=== PATIENT | male | born 1975 | race Caucasian/White ===

== ENCOUNTER 2020-09-06 09:58 | Outpatient (CLI) | payer MEDICAID, SELFPAY ==
[2020-09-06 13:18] LABS: Abs Immature Grans 0.06 10^3/uL (0.0-0.06); Absolute Basophil Count 0.05 10^3/uL (0.0-0.2); Absolute Eosinophil Count 0.21 10^3/uL (0.0-0.7); Absolute Lymphocyte Count 2.32 10^3/uL (1.2-3.4); Absolute Monocyte Count 0.63 10^3/uL (0.1-0.8); Absolute Neutrophil Count 4.73 10^3/uL (1.2-6.7); Basophils % 0.6; Eosinophils % 2.6; HCT 41.1 % (40.0-50.0); HGB 14.2 g/dL (13.5-17.5); Immature Grans % 0.8; MCH 31.7 pg (27.0-33.0); MCHC 34.5 % (32.0-36.0); MCV 91.7 fL (80-95); MPV 8.6 fL (8.0-11.0); Monocytes % 7.9; Neutrophils % 59.1; Nucleated RBC 0 %; Platelet Count 306 10^3/uL (130-400); RBC 4.48 10^6/uL (4.36-5.78); RDW 13.2 % (11.8-14.1); RDW-SD 44.9 fL
[2020-09-06 13:58] LABS: Folate > 20.0 ng/mL (8.6-20.0); Vitamin B12 692 pg/mL (193-986)
== END 2020-09-06 09:59 | disposition home or self-care (01) ==
PROVIDERS: Visit Provider Internal Medicine
DX: C71.9 Malignant neoplasm of brain, unspecified (principal)
CPT/HCPCS: 82607; 82746; 85025

== ENCOUNTER 2020-09-13 03:27 | Outpatient (CLI) | payer MEDICAID, SELFPAY ==
[2020-09-13 09:38] LABS: Abs Immature Grans 0.14 10^3/uL (0.0-0.06); Absolute Basophil Count 0.03 10^3/uL (0.0-0.2); Absolute Eosinophil Count 0.01 10^3/uL (0.0-0.7); Absolute Lymphocyte Count 1.05 10^3/uL (1.2-3.4); Basophils % 0.3; Eosinophils % 0.1; HCT 40.6 % (40.0-50.0); HGB 14.1 g/dL (13.5-17.5); Immature Grans % 1.2; Lymphocytes % 9.1; MCH 31.4 pg (27.0-33.0); MCHC 34.7 % (32.0-36.0); MCV 90.4 fL (80-95); MPV 9.1 fL (8.0-11.0); Neutrophils % 84.3; Nucleated RBC 0 %; Platelet Count 262 10^3/uL (130-400); RBC 4.49 10^6/uL (4.36-5.78); RDW 12.8 % (11.8-14.1); RDW-SD 42.8 fL; WBC 11.51 10^3/uL (4.4-10.8)
[2020-09-13 09:39] LABS: Absolute Monocyte Count 0.58 10^3/uL (0.1-0.8)
[2020-09-13 10:14] LABS: ALT 33 U/L (16-63); AST 24 U/L (15-37); Alkaline Phosphatase 130 U/L (46-116); Anion Gap 11.3 mmol/L (3-11); BUN 13 mg/dL (7-18); Bilirubin, Total 0.4 mg/dL (0.2-1.0); CO2 25.7 mmol/L (21.0-32.0); Calcium 9.4 mg/dL (8.5-10.1); Chloride 101 mmol/L (98-107); Glucose 117 mg/dL (74-106); Potassium 4.3 mmol/L (3.5-5.1); Sodium 138 mmol/L (136-145); Total Protein 8.3 g/dL (6.4-8.2); Vitamin B12 672 pg/mL (193-986)
[2020-09-13 10:22] LABS: Folate > 20.0 ng/mL (8.6-20.0)
[2020-09-13 10:34] LABS: Iron 115 ug/dL (65-175)
== END 2020-09-13 03:28 | disposition home or self-care (01) ==
LOC: LBO 03:27
PROVIDERS: Visit Provider Internal Medicine
DX: C71.9 Malignant neoplasm of brain, unspecified (principal)
CPT/HCPCS: 36415; 80053; 82607; 82746; 83540; 85025

== ENCOUNTER 2020-09-20 02:46 | Outpatient (CLI) | payer MEDICAID, SELFPAY ==
[2020-09-20 10:43] LABS: HCT 41.6 % (40.0-50.0); HGB 13.7 g/dL (13.5-17.5); MCH 31.2 pg (27.0-33.0); MCHC 32.9 % (32.0-36.0); MCV 94.8 fL (80-95); Platelet Count 279 10^3/uL (130-400); RBC 4.39 10^6/uL (4.36-5.78); RDW 13.4 % (11.8-14.1); RDW-SD 46.8 fL; WBC 20.45 10^3/uL (4.4-10.8)
[2020-09-20 11:23] LABS: ALT 95 U/L (16-63); AST 52 U/L (15-37); Albumin 3.7 g/dL (3.4-5.0); Alkaline Phosphatase 101 U/L (46-116); Anion Gap 7.2 mmol/L (3-11); BUN 16 mg/dL (7-18); Bilirubin, Total 0.4 mg/dL (0.2-1.0); CO2 28.8 mmol/L (21.0-32.0); CREATININE 0.8 mg/dL (0.70-1.30); Calcium 8.9 mg/dL (8.5-10.1); Chloride 102 mmol/L (98-107); Folate > 20.0 ng/mL (8.6-20.0); Glucose 109 mg/dL (74-106); Potassium 4.1 mmol/L (3.5-5.1); Sodium 138 mmol/L (136-145); Total Protein 7.3 g/dL (6.4-8.2); Vitamin B12 492 pg/mL (193-986)
[2020-09-20 11:28] LABS: Iron 126 ug/dL (65-175)
== END 2020-09-20 02:47 | disposition home or self-care (01) ==
LOC: LBO 02:46
PROVIDERS: Visit Provider Internal Medicine
DX: C71.9 Malignant neoplasm of brain, unspecified (principal)
CPT/HCPCS: 36415; 80053; 85027; 82607; 82746; 83540

== ENCOUNTER 2020-09-27 01:56 | Outpatient (CLI) | payer MEDICAID, SELFPAY ==
[2020-09-27 09:49] LABS: HCT 43.7 % (40.0-50.0); HGB 14.6 g/dL (13.5-17.5); MCH 32.1 pg (27.0-33.0); MCHC 33.4 % (32.0-36.0); MPV 8.7 fL (8.0-11.0); Nucleated RBC 0 %; Platelet Count 299 10^3/uL (130-400); RBC 4.55 10^6/uL (4.36-5.78); RDW 13.6 % (11.8-14.1); RDW-SD 48.5 fL; WBC 23.61 10^3/uL (4.4-10.8)
[2020-09-27 10:09] LABS: Absolute Eosinophil Count 0.24 10^3/uL (0.0-0.7); Absolute Monocyte Count 2.12 10^3/uL (0.1-0.8); Absolute Neutrophil Count 17.24 10^3/uL (1.2-6.7); Atypical Lymphocytes % 1; Diff Comment Manual Differential; Metamyelocytes % 3; Myelocytes % 3; RBC Morphology Normal
[2020-09-27 10:26] LABS: ALT 145 U/L (16-63); AST 66 U/L (15-37); Albumin 3.6 g/dL (3.4-5.0); Alkaline Phosphatase 109 U/L (46-116); Anion Gap 8.7 mmol/L (3-11); BUN 18 mg/dL (7-18); Bilirubin, Total 0.7 mg/dL (0.2-1.0); CO2 28.3 mmol/L (21.0-32.0); CREATININE 0.9 mg/dL (0.70-1.30); Calcium 8.9 mg/dL (8.5-10.1); Chloride 98 mmol/L (98-107); Folate > 20.0 ng/mL (8.6-20.0); Glucose 97 mg/dL (74-106); Potassium 4.2 mmol/L (3.5-5.1); Sodium 135 mmol/L (136-145); Total Protein 7.3 g/dL (6.4-8.2); Vitamin B12 407 pg/mL (193-986)
[2020-09-27 10:41] LABS: Iron 237 ug/dL (65-175)
== END 2020-09-27 01:57 | disposition home or self-care (01) ==
LOC: LBO 01:59
PROVIDERS: Visit Provider Internal Medicine
DX: C71.9 Malignant neoplasm of brain, unspecified (principal)
CPT/HCPCS: 36415; 80053; 82607; 82746; 83540; 85025

== ENCOUNTER 2020-10-05 08:34 | Outpatient (CLI) | payer MEDICAID, SELFPAY ==
--- OUTSIDE RECORDS SUMMARY | 2020-10-05 08:53 | XMS_ITS | Encounter Summary ---
:1975 Author Care Team Providers Name Role Phone Ethan Landa Primary Care Provider [phone] Ethan Landa (Direct) Primary Care Provider [phone] Ethan Landa Referring Provider [phone] Reason for Visit f/u headache Assessment and Plan 1. Headache Headache improved now on nortr iptyline and morphine which is also helping with his sleep. At this point given the progress I rec. he start cutting back on the dilaudid in order to circumvent a possib le medication-overuse headache. He seems agreeable. Will maintain him on the morp amalia and nortriptyline, the latter of which will continue to benefit him. Will re-ev al in 2 weeks. 2. Glioblastoma Will be starting chemotherapy and radiation. Remains hopeful. Getting today. He seems to be in a good mood with good energy levels today, much more alert and his recent memory appears bett er as well. Discussion Note: None recorded.Patient educational handouts: No information available. Plan of Care Patient Instructions --Back down on the dilaudid to try to use the medication 3 times per day. Reminders Provider Appointments Complex 10/24/2020 Ethan moon, Follow up 3:50PM CAUSTIC ROOM ATTENDANT Lab None ? ? recorded. Referral None ? ? recorded. Procedures None ? ? recorded. Surgeries None ? ? recorded. Imaging None ? ? recorded. Medications Name Start Date ? ? apple cider vinegar ? calcium citrate 200 mg calcium-vitamin D3 3.125 mcg (1 25 unit) tablet ? Take 1 tablet every day by oral route in the morning. COMPOUNDED MEDICATION ? formula for neuropathy with ketamine 2 pumps twice per day cranberry extract ? Culturelle 10 billion cell capsule ? Take 1 capsule every day by oral route in the morning . cyanocobalamin (vit B-12) 1,000 mcg tablet ? Take 1 tablet every day by oral route in the morning. dexamethasone 1 mg tablet ? take 1 tablet by mouth once daily for 1 4 days --FOLLOW INSTRUCTIONS PER STEROID TAPER dexamethasone 4 mg tablet ? One tablet twice a day. fluconazole 100 mg tablet ? take 1 tablet by mouth once daily fluticasone propionate 50 mcg/actuation nasal spray,hannah spension ? instill 1 spray into each nostril once daily folic acid 1 mg tablet ? take 1 tablet by mouth once daily glucosamine 750 mg-chondroitin 600 mg chewable tablet ? Take 1 tablet every day by oral route in the morning. hydromorphone 2 mg tablet ? take 1.5 tablet by mouth every 4 hours if needed for pain Lidocaine Viscous 2 % mucosal solution ? take 15 milliliters by mouth four times a day for 7 d ays lorazepam 0.5 mg tablet ? TAKE 1 TABLET TWICE A DAY NEEDED FOR ANXIETY magnesium ? OTC once a day metoprolol tartrate 50 mg tablet ? Take 2 tablets in the morning and 1 at night. nortriptyline 25 mg capsule ? take 1 to 2 capsules by mouth at bedtime for insomnia / HEADACHES nystatin 100,000 unit/mL oral suspension ? take 5 milliliters by mouth four times a day --SWISH IN MOUTH FOR 2 MINUTES THEN SWALLOW Nystop 100,000 unit/gram topical powder ? apply topically to affected area four times a day omeprazole 40 mg capsule,delayed release ? take 1 capsule by mouth ONCE EVERY DAY BEFORE A MEAL ondansetron 4 mg disintegrating tablet ? PLACE 1 TABLET EVERY 6 HOURS IN MOUTH LET DISSOLVE NEEDED FOR 7 DAYS ondansetron HCl 4 mg tablet ? temozolomide 140 mg capsule ? thiamine HCl (vitamin B1) 100 mg tablet ? take 2 tablets by mouth once daily Vimpat 100 mg tablet ? take 1 tablet by mouth twice a day Medications Administered None recorded. Vitals Height Weight BMI Blood Pressure 6 ft 156 lbs 21.2 kg/m2 126/80 mm[Hg] Results Lab Results None recorded. Allergies Code Code System Name Reaction Severity Onset House Dust ? ? ? Mite NKDA ? ? ? Problems Name Status Onset Date Source ? Bipolar Disorder Active 05/11/2020 ? Anxiety Active 05/11/2020 ? Alcoholism Active 05/11/2020 ? Posttraumatic Stress Disorder Active 05/11/2020 ? Depressive Disorder Active 05/11/2020 ? Essential Hypertension Active 05/11/2020 ? Gastritis Active 05/11/2020 ? Alcoholic Hepatitis Active 05/11/2020 ? Low Back Pain Active 05/11/2020 ? Alcohol Withdrawal-induced Convulsion Active 06/12/2020 ? 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 Lumbago with Sciatica Active 06/13/2020 ? Neuropathy Active 06/25/2020 ? Glioblastoma Active 08/28/2020 ? Procedures Date Name Performed by ? 08/14/2020 Brain Surgery Information not avai lable Notes: resection of large glioblastom a ? Repair of Elbow Information not avai lable Notes: childhood right elbow fracture , states no hardware 08/07/2020 US, Elastogram [facility] - R [place]iology [address] [place] [address] (Work [address]) 08/13/2020 CT, Head, W/o Contrast [facility] [address] [place] [address] (Work Place) Vaccine List None recorded. Social History Tobacco Smoking Status Light Tobacco Smoker (1 Notes: 04/16 -1/2 ppd pack per week) smoker for 30+ yrs Do you have difficulty walking N or climbing stairs? Are you able to walk? YESWOREST Have you received the covid N Notes: naranjo s not received vaccine this year? (If so, a covid vacci nation, no document vaccination in Vaccine schedule d appt, on waiting Module in [place]) list Has tobacco cessation counseling 0 been provided? Are you able to care for Y yourself? Have you used IV drugs? N Are you blind or do you have N difficulty seeing? Do you have transportation N difficulties? Are you currently waiting on N Notes: c ovid test - results of a COVID-19 test? negative What is your code status? 0 Are you isolating or N quarantining because you may have been exposed to a person with COVID-19 or are worried that you may be sick with COVID-19? Do you have a directive to N physicians? What was the date of your most 10/03/2020 recent tobacco screening? Do you or have you ever used Never used electronic e-cigarettes or vape? cigarettes Do you have an advanced N directive? Do you use any illicit or Y Notes: evonne y use, recreational drugs? smoke, for pain/anxi ety What is your level of alcohol 0 Notes: hx of consumption? alcoholism, currentl y sober since 1 Have you travelled outside of [facility] in the past 14 days? Have you experienced any of the N following symptoms in the past 48 hours? Fever/Chills, Cough, Shortness of breath or difficulty breathing, fatigue, muscle or body aches, headache, new loss of taste or smell, sore throat, congestion or runny nose, nausea or vomiting and/or diarrhea Have you had any vaccines in the N last month or do you have any vaccines scheduled? Do you or have you ever used Never used smokeless smokeless tobacco? tobacco Which illicit or recreational marijuana Notes: daily use, drugs have you used? smoke, for pain/anx iety Within the past 14 days, have N you been in close physical contact (6 feet or closer for a cumulative total of 15 minutes) with anyone that is known to have laboratory-confirmed COVID-19? OR Anyone who has any symptoms consistent with COVID-19? Do you have difficulty N concentrating, remembering or making decisions? Are you deaf or do you have N serious difficulty hearing? Have you ever been counseled for Y unhealthy alcohol use? Do you have difficulty dressing N or bathing? Family History Relation Problem Onset Age of Age Notes Brother Bipolar disorder (No N/A (No Notes) Information) Father Alcoholism (No N/A (No Notes) Information) Maternal Grandfather Heart disease (No N/A (No No josie) Information) Mother Bipolar disorder (No N/A (No Notes) Information) Unspecified Relation Myocardial infarction (No N/A (No Notes) Information) Unspecified Relation Malignant tumor of (No N/A ( No Notes) pancreas Information) Unspecified Relation Malignant tumor of (No N/A ( No Notes) stomach Information) Sister Attention deficit (No N/A (No Notes) hyperactivity disorder Information) Functional Status No Impairment. Past Encounters 09/05/2020 Headache; Glioblastoma Ethan Landa, CAUSTIC ROOM ATTENDANT: [address] [place] [address], Ph. [phone] 08/29/2020 Headache; Removal of Kirill Ethan Landa, CAUSTIC ROOM ATTENDANT: [address] [place] [address], Ph. 08/27/2020 Headache; Glioblastoma; Alcoholic Hepati tis; Essential Hypertension Ethan Landa, CAUSTIC ROOM ATTENDANT: [address] [place] [address], Ph. [phone] 08/13/2020 Neuropathy; Gastritis; Confusional State Ethan Landa, CAUSTIC ROOM ATTENDANT: [address] [place] [address], Ph. [phone] 08/07/2020 Alcoholic Hepatitis Kaitlin Luke MD: [address] [place] [address], Ph. History of Present Illness Note: Reason for Visit/Add'l information:
<div>f/u headache today has been a good day. He is getting to July.
</div><div>
<div>
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 Info seems {{reliable* not reliable}}.

Were there any discrepancies? {{ No* Yes}}. If yes, then list-

Medications completed due to end of course if any - none

Have you been seen by another provider, had an ER visit or hospitalization since our last visit here on 08/29/20: Oncology

And have any Medications been added, stopped or adjusted since last visit? Has a new chemo medication, tablets.

Provider HPI</div></div><di v>
</div><div>Headaches: Still having a headaches everyday, not as bad as formerly and gradually getting better. Pain currently about 4.5/10, still taking dilaudid about 4 timesper day when the pain reaches a 7/10. Has taken 1 tablet of zofran. Taking nortriptyline at night which helps with pain and insomnia. Tends to take naps during the daytime as well which helps headaches. Overall feels he is doing well</div><div>
</div><div>Glioblastoma:Will be starting both chemo and radiation. Approved for medical marijuana card</div>Review of Systems: ROS as noted in the HPI Review of Systems None recorded. Physical Exam ? [facility] General Adult Exam Reported By: Patient Constitutional: General Appearance: healthy- appearing, well-nourished, well-developed. Level of Dis tress: distress. Ambulation: ambulating normally Psychiatric: Insight: good judgement. Men anatsasia Status: active and alert, normal mood, normal affect. Orienta tion: to time, to place, to person. Memory: recent memory normal , remote memory normal Head: Head: normocephalic, atrauma tic Eyes: Lids and Conjunctivae: non-i njected, no discharge, no pallor. Pupils: PERRLA. Corneas: grossly int act Lungs: Respiratory effort: no dyspn ea. Auscultation: breath sounds normal, no wheezing, no rales/crackl es, no rhonchi, diminished air movement Cardiovascular: Heart Auscultation: RRR, nor mal S1, normal S2, no murmurs, no rubs, no gallops Neurologic: Gait and Station: normal gai t. Cranial Nerves: grossly intact. Coordination and Cerebellum: no tremor Skin: Inspection and palpation: no rash, no lesions, no ulcer, no abnormal nevi
--- OUTSIDE RECORDS SUMMARY | 2020-10-05 08:53 | XMS_ITS | Encounter Summary ---
:1975 Author Care Team Providers Name Role Phone Ethan Landa Primary Care Provider [phone] Ethan Landa (Direct) Primary Care Provider [phone] Ethan Landa Referring Provider [phone] Reason for Visit f/u headaches/staple removal Assessment and Plan 1. Headache Headache slightly improved on morphine ER, will maintain him on the present medication until re-evaluation in 1 week . 2. Removal of kirill [place] removed with incident. Discussion Note: None recorded.Patient educational handouts: No information available. Plan of Care Patient Instructions --Stop gabapentin, stop seroquel, s top fiorecet --Start oxycontin every 12 hours as need ed. --Start nortriptyline, taking 1-2 capsul es for sleep and headache. It may take several weeks to start to notice a benefit. --Either call Dr. Luke, and Ill try t o reach out to her about the lasix/spironolactone and thiamine. Reminders Provider Appointments Complex 10/24/2020 Ethan moon, Follow up 3:50PM ENVIRONMENTAL ADVISER Lab None ? ? recorded. Referral None [...] day Medications Administered None recorded. Vitals Height Blood Pressure 6 ft 134/88 mm[Hg] Results Lab Results None recorded. Allergies [...] , states no hardware 08/07/2020 US, Elastogram [facility] R [facility] [address] [place] [address] ([address]) 08/13/2020 CT, Head, W/o Contrast [facility] [address] [place] [address] (Work Place) Vaccine List None recorded. Social History Tobacco Smoking Status Light Tobacco Smoker (1 Notes: 1/4 -1/2 ppd pack per week) smoker for 30+ yrs Do you have difficulty walking N or climbing stairs? Are you able to walk? YESWOREST Have you received the covid N Notes: naranjo s not received vaccine this year? (If so, a covid vacci nation, no document vaccination in Vaccine schedule d appt, on waiting Module in [place]) list Has tobacco cessation counseling 0 been [...] since 1 Have you travelled outside of [facility] in the past 14 days? Have you [...] Information) Functional Status No Impairment. Past Encounters 08/29/2020 Headache; Removal of Kirill Ethan Landa, ENVIRONMENTAL ADVISER: [address] [place] [address], Ph. 08/27/2020 Headache; Glioblastoma; Alcoholic Hepati tis; Essential Hypertension Ethan Landa, ENVIRONMENTAL ADVISER: [address] [place] [address], Ph. [phone] 08/13/2020 Neuropathy; Gastritis; Confusional State Ethan Landa, ENVIRONMENTAL ADVISER: [address] [place] [address], Ph. 08/07/2020 Alcoholic Hepatitis Kaitlin Luke MD: [address] [place] [address], Ph. History of Present Illness Note: Reason for Visit/Add'l information:
<div>f/u headaches/staple removal

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 Info seems {{reliable* not reliable}}.

Werethere any discrepancies? {{ No* Yes}}. If yes, then list-

Medications completed due to end of course if any - no

Have you been seen by another provider, had an ER visit or hospitalization since our last visit here on 08/27/20: no

And have any Medications been added, stopped or adjusted since last visit? no

Provider HPI</div><div>
</div><d iv>Here for staple removal. Needs to leave immediately afterwards to followup with oncology about beginning immunotherapy. Has started morphine ER and reports the pain is better controlled. </div><d iv>
</div>Review of Systems: ROS as noted in the HPI Review of Systems None recorded. Physical Exam ? General Adult Exam Reported By: Patient Constitutional: General Appearance: healthy- appearing, well-developed, overweight. Level of Distress: mild dist ress. Ambulation: ambulating normally Psychiatric: Insight: good judgement. Men anastasia Status: active and alert, normal mood, normal affect. Orienta tion: to time, to place, to person. Memory: remote memory normal , recent memory abnormal Head: Head: normocephalic, atrauma tic Eyes: Lids [...] rash, no lesions, no ulcer, no abnormal nevi; healed surgical incisi on in the right temporal area with approx. [address]
--- OUTSIDE RECORDS SUMMARY | 2020-10-05 08:53 | XMS_ITS | Encounter Summary ---
:1975 Author Care Team Providers Name Role Phone Ethan Landa Primary Care Provider [phone] Ethan Landa (Direct) Primary Care Provider [phone] Ethan Landa Referring Provider [phone] Reason for Visit hospital followup- worsening headache, n eeds pain med renewed, night sweatsneeds longer appt per TK Assessment and Plan 1. Headache Headache likely r/t to brain t umor and s/p resection, weaned off steroids and now maintained on dilaudid with medi ocre improvement in symptoms. Given that his pain seems to increase between dosages o f dilaudid will start an extended release opiate and maintain him on dilaudid. 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 Will furthermore sta rt nortriptyline to both help with sleep and pain. Will re-eval in 2 days for staple removal r/t to his craniotomy. Will D/C fiorecet and gabapentin given lack of im provement in headache pain. ? hydromorphone 2 mg tablet ? OxyContin 15 mg tablet,cru sh resistant,extended release ? nortriptyline 25 mg capsul e ? OxyContin 15 mg tablet,cru sh resistant,extended release 2. Glioblastoma Will be meeting with palliati e [facility] and will start radiation therapy as well. Follows up with neurosurgery later this week. 3. Alcoholic hepatitis Presently maintained on spiron olactone and lasix without signs of ascites. Thus far, his workup has been negative f or liver cirrhosis and he has no evidence of ascites on physical exam today. Both pt. and fiance asked about discontinuing medications given lack of findings and I rec. that they touch base with his sales systems engineer about this. 4. Essential hypertension Discontinued off losartan in h ospital setting, BP elevated today but pt. exhibiting significant pain behavior. Wi ll re-eval in severl days once headache improved and see is BP is any lower. Discussion Note: None recorded.Patient educational handouts: No [...] Complex 10/24/2020 Ethan moon, Follow up 3:50PM ELECTRICAL TEST ENGINEER Lab None ? ? recorded. Referral None [...] Height Weight BMI Blood Pressure 6 ft 154 lbs 20.9 kg/m2 150/90 mm[Hg] Results Lab Results None recorded. Allergies [...] , states no hardware 08/07/2020 US, Elastogram [facility] - R [facility]iology [address] [place] [address] (Work [address]) 08/13/2020 CT, Head, W/o Contrast [facility] Rad[facility] [address] [place] [address] (Work Place) Vaccine List None recorded. Social History Tobacco Smoking Status Light Tobacco Smoker (1 Notes: 14 -1/2 ppd pack per week) smoker for 30+ yrs Do you have difficulty walking N or climbing stairs? Are you able to walk? YESWOREST Have you received the covid N Notes: naranjo s not received vaccine this year? (If so, a covid vacci nation, no document vaccination in Vaccine schedule d appt, on waiting Module in [place]) list Has tobacco cessation counseling 0 been [...] COVID-19? Do you have a directive to physicians? What was the date of your [...] Have you had any vaccines in the last month or do you have any [...] Information) Functional Status No Impairment. Past Encounters 08/27/2020 Headache; Glioblastoma; Alcoholic Hepati tis; Essential Hypertension Ethan Landa, ELECTRICAL TEST ENGINEER: [address] [place] [phone], Ph. 08/13/2020 Neuropathy; Gastritis; Confusional State Ethan Landa ELECTRICAL TEST ENGINEER: [address] [place] [phone], Ph. 08/07/2020 Alcoholic Hepatitis Kaitlin Luke MD: [address] [place] [phone], Ph. History of Present Illness Note: Reason for Visit/Add'l information:
<div>hospital followup- worsening headache,needs pain med renewed, night sweats
</div><div>needs longer appt per TK<br&g t;
Medication Reconciliation source: {{Patient * typer spouse }} .Conducted by [facility] relying on {{recall only* pill bottles patient's med list hospital discharge list rehab facility discharge list [facility] med list others }}. Info seems {{reliable* not reliable}}.

Were there any discrepancies? {{ No* Yes}}. If yes, then list-

Medications completed due to end of course if any - no

Have you been seen by another provider, had anER visit or hospitalization since our last visit here on 08/13/20: [facility] surgery

Andhave any Medications been added, stopped or adjusted since last visit? See list

Provider HPI</div><div>
</di v><div>Recently discharged from where he received a craniotomy for a brain tumor with good response from surgery. He feels better cognitively and has some improvement with his mobility and dizziness but has lost peripheral vision of the left eye and has had severe headaches since the surgery. He was placed on dilaudid and referred to palliative care but reports the dilaudid has not been greatly beneficial and just mildly effective. Furthermore, the pain escalated between dosages. He maintains a positive attitude despite his diagnosis and finds strength in his tenriism and fiancee. </d iv><div>
</div>Review of Systems: ROS as noted in the HPI Review of Systems None recorded. Physical Exam ? General Adult Exam Reported By: Patient Constitutional: General Appearance: healthy- appearing, well-developed, overweight. Level of Distress: moderate distress. Ambulation: ambulating normally Psychiatric: Insight: good [...]
--- OUTSIDE RECORDS SUMMARY | 2020-10-05 08:53 | XMS_ITS | Encounter Summary ---
:1975 Author Care Team Providers Name Role Phone Ethan Landa Primary Care Provider [phone] Ethan Landa (Direct) Primary Care Provider [phone] Ethan Landa Referring Provider [phone] Reason for Visit f/u anxiety/liver enzymes Assessment and Plan 1. Neuropathy ? lyme antibody screen, EIA/ olivia, serum 2. Gastritis ? omeprazole 40 mg capsule,d elayed release 3. 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 He also reports falls now and imbalance, and worsening headaches w hich we had discussed at a prior visit. His mental status is notably changed today a nd he is not his humorous and amiable nature. He does have a history of ETOH use and i s currently being followed by a guard dance hall and thus this could b e alcoholic encephalopathy though his ammonia has been normal and he has stopped drink ing. Other concerns could be an infection or possible malignancy. I considered perfor serjio an outpatient CT but upon further examination elected to send him to the [facility] for further workup, Called ER to relay report. ? CT, head, w/o contrast - w orsening memory x2 months, worsening headaches and ataxia. History of ETOH ab use. ? unlisted lab - thiamine (v it B1) ? CBC w/ auto diff Discussion Note: None recorded.Patient educational handouts: No information available. Plan of Care Patient Instructions --Please get the labs this week --I ordered you for a CT scan of the hea d, this needs to be done today or tomorrow. Reminders Provider Appointments Complex Ethan moon, Follow up 10/24/2020 TABLET TECHNICIAN 3:50PM [facility], 08/13/2020 (Lab) EIA/olivia, Serum ? Unlisted Lab [facility] 08/13/2020 (Lab) ? CBC W/ Auto [facility] Diff 08/13/2020 (Lab) Referral None ? ? recorded. Procedures None ? ? recorded. Surgeries None ? ? recorded. Imaging CT, Head, [facility] - W/o Contrast 08/13/2020 Radiology Medications Name Start Date ? ? apple [...] Height Weight BMI Blood Pressure 6 ft 158 lbs 21.4 kg/m2 134/90 mm[Hg] Results Lab Results Date Name Specimen Result Interpretation Description Value Range Status Address ? 08/13/2020 CBC W/ WB Normal Wbc 8.6 4.8-10.8 Final [facility] Auto 10^3/mm^3 10^3/mm^3 Hosp ital Diff (Lab): [address] [place] [address] ? ? WB Normal Rbc 4.24 4.20-5.90 Final [facility] 10^6/mm^3 10^6/mm^3 Hosp ital (Lab): [address] [place] [address] ? ? WB Low Hgb 13.3 g/dL 13.5-17.5 Final [facility] g/dL Hospital (Lab): [address] [place] [address] ? ? WB Low Hct 39 % 40-50 % Final [facility] Hospital (Lab): [address] [place] [address] ? ? WB Normal Mcv 91.7 fL 80.0-97.0 Final [facility] Hospital (Lab): [address] [place] [address] ? ? WB Normal Mch 31.4 pg 27.5-32.1 Final [facility] Hospital (Lab): [address] [place] [address] ? ? WB Normal Mchc 34 g/dL 33-36 g/dL Final [facility] (Lab): [address] [place] [address] ? ? WB Normal Rdw 13.8 % 11.6-14.8 % Final [facility] (Lab): [address] [place] [address] ? ? WB Normal Platelets 242 150-400 Final [facility] 10^3/mm^3 10^3/mm^3 Hosp ital (Lab): [address] [place] [address] Allergies Code Code System Name Reaction Severity [...] , states no hardware 08/07/2020 US, Elastogram [facility] R adiology [address] [place], [place] [id number] (Work Place) 08/13/2020 CT, Head, W/o Contrast [facility] - Radiology [address] [place], [place] [id number] (Work Place) Vaccine List None recorded. Social [...] schedule d appt, on waiting Module in [place]) list Has tobacco cessation counseling 0 been [...] since 1 Have you travelled outside of [facility] in the past 14 days? Have [...] Information) Functional Status No Impairment. Past Encounters 08/13/2020 Neuropathy; Gastritis; Confusional State Ethan Landa, TABLET TECHNICIAN: [address] [place] [address], Ph. 08/07/2020 Alcoholic Hepatitis Kaitlin Luke MD: [address] [place] [address], Ph. History of Present Illness Note: Reason for Visit/Add'l information: Refil omeprazole. He reports off balance,memory loss, nausea, fatigue,not comfortable driving, confusion
<div>f/u anxiety/liver enzymes
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 Info seems {{reliable* not reliable}}.

Werethere any discrepancies? {{ No* Yes}}. If yes, then list-

Medications completed due to end of course if any - clindamycin

Have you been seen by another provider, had an ER visit or hospitalization since our last visit here on 07/09/20: Gastro, Dr. Luke

And have any Medications been added, stopped or adjusted since last visit? no
< br>Provider HPI</div><div><br&gt ;</div><div>Has been having memory issues which have been worsening with time, now unable to remember anything that was just said to him. He has also started to have trouble walking and with balance, falling about 6 times within the past couple weeks. He has been increasingly confused as well. Has night sweats the past 3 days in a row. Has been having a lot of chills, freezing now. His headache has also worsened with time, previously responsive to tylenol but no longer so.
</ div><div>
</div><div>He presents alone </div>Review of Systems: ROS as noted in the HPI Review of Systems None recorded. Physical Exam ? [facility] General Adult Exam Reported By: Patient Constitutional: General Appearance: healthy- appearing, well-nourished, well-developed. Level of Dis tress: NAD. Ambulation: limited ambulation; unsteady ambulat ion Psychiatric: Insight: good judgement, poo r insight. Mental Status: normal mood, normal affect, confused. Matthew entation: to time, to place, to person. Memory: remote memory normal , recent memory abnormal Head: Head: normocephalic, atrauma tic Eyes: Lids and Conjunctivae: non-i njected, no discharge, no pallor. Pupils: PERRLA. Corneas: bere ssly intact Lungs: Respiratory effort: no dyspn ea. Auscultation: breath sounds normal, no wheezing, no rales/crackl es, no rhonchi, diminished air movement Cardiovascular: Heart Auscultation: RRR, nor mal S1, normal S2, no murmurs, no rubs, no gallops Musculoskeletal:: Motor Strength and Tone: abn ormal motor strength; unable to follow instructions to mortar mixer operator bilater allly Neurologic: Gait and Station: irregular gait. Cranial Nerves: grossly intact. Coordination and Cerebellum: romberg; unable to perform cerebellar signs Skin: Inspection and palpation: no rash, no lesions, no ulcer, no abnormal nevi
--- OUTSIDE RECORDS SUMMARY | 2020-10-05 08:53 | XMS_ITS ---
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 [address] ? ? WB Low Hct 38 % 40-50 % Final [facility] Hospital (Lab): [address] [place] [address] ? ? WB High Mcv 103.8 fL 80.0-97.0 Final [facility] Hospital (Lab): 90 [facility] ? ? WB High Mch 34.3 pg 27.5-32.1 Final [facility] pg Hospital (Lab): [facility] ? ? WB Normal Mchc 33 g/dL 33-36 g/dL Final [facility] (Lab): [facility] ? ? WB Normal Rdw 11.8 % 11.6-14.8 Final [facility] Hospital (Lab): [facility] ? ? WB Normal Platelet 207 10^3/mm^3 150-400 Final [facility] s 10^3/mm^3 Hospita l (Lab): [address] [place] [address] 05/28/2020 Ammonia, P Normal Amm 11 umol/L 11-32 Final [facility] Quant, umol/L Hospital Plasma (Lab): [address] [place] [address] 05/28/2020 Prothrombin P Normal ? 11.3 sec 9.4-11.3 Rachel hicks [facility] Time sec Hospital (Lab): [address] [place] [address] ? ? P ? Inr 1.10 ? Final [facility] Hospital (Lab): [address] [place] [address] 05/28/2020 CBC, Reflex WB High %Neutrop 93 % 40-75 % Rachel l [facility] Manual Diff hil Hospi anastasia (Lab): [facility] ? ? WB Normal %Band 0 % 0-5 % Final [facility] Hospital (Lab): [address] [place] [address] ? ? WB Low %Lymphoc 6 % 20-45 % [facility] (Lab[facility] [address] [place] [address] ? ? WB Low %Monocyt 1 % 2-10 % Final [facility] (Lab): [address] [place] [address] ? ? WB Low %Eosinop 0 % 1-6 % Final [facility] Hospital (Lab): [address] [place] [address] ? ? WB Normal %Basophi 0 % 0-1 % Final [facility] Hospital (Lab): 90 [facility] ? ? WB ? %Atypica 0 % ? Final [facility] l Lymph [facility] (Lab): 90 [facility] ? ? WB ? %Metamye 0 % ? Final [facility] locyte Hospital (Lab): 90 [facility] ? ? WB ? %Myelocy 0 % ? Final [facility] te Hospital (Lab): [facility] ? ? WB ? %Promyel 0 % ? Final [facility] ocyte Hospital (Lab): 90 [facility] ? ? WB ? %Blast 0 % ? Final [facility] Hospital (Lab): [facility] ? ? WB ? Nrbc 0 /100 WBC ? Final [facility] (Lab): [address] [place] [address] ? ? WB Normal Platelet adequate adequate Final [facility] Hospital (Lab): [address] [place] [address] ? ? WB ? Macrocyt 1+ ? Final [facility] osis Hospital (Lab): [address] [place] [address] 05/28/2020 CMP, Serum P High Na 146 mEq/L 136-145 Final [facility] or Plasma mEq/L Hospita l (Lab): [address] [place] [address] ? ? P Normal K 4.3 mEq/L 3.5-5.1 Final [facility] mEq/L Hospital (Lab): [address] [place] [address] ? ? P Normal Cl 107 mEq/L 98-107 Final [facility] mEq/L Hospital (Lab): [address] [place] [address] ? ? P Normal Co2 25 mEq/L 21-31 Final [facility] mEq/L Hospital (Lab): [address] [place] [address] ? ? P ? Agap 18.3 ? Final [facility] calculation Hospi anastasia (Lab): [address] [place] [address] ? ? P High Glu 116 mg/dL 70-100 Final [facility] mg/dL Hospital (Lab): [address] [place] [address] ? ? P Normal Bun 7 mg/dL 7-18 mg/dL Final [facility] (Lab): [address] [place] [address] ? ? P Normal Creat 0.96 mg/dL 0.70-1.30 Final [facility] mg/dL Hospital (Lab): [address] [place] [address] ? ? P ? Bn/cr 7.1 ratio ? Final [facility] Hospital (Lab): [address] [place] [address] ? ? P Low Ca 8.1 mg/dL 8.5-10.1 [facility] ([facility] [address] [place] [address] ? ? P ? Alkp 225 U/L ? Final [facility] Hospital (Lab): [address] [place] [address] ? ? P Normal Alt 58 U/L 16-63 U/L Final [facility] (Lab): [address] [place] [address] ? ? P High Ast 64 U/L 15-37 U/L Final [facility] (Lab): [address] [place] [address] ? ? P High Tbil 2.1 mg/dL <=1.2 Final [facility] mg/dL Hospital (Lab): [address] [place] [address] ? ? P Low Tp 5.9 g/dL 6.4-8.2 Final [facility] g/dL Hospital (Lab): [address] [place] [address] ? ? P Low Alb 2.7 g/dL 3.4-5.0 Final [facility] g/dL Hospital (Lab): [address] [place] [address] ? ? P ? Glob 3.15 mg/dL ? [facility] Hospital (Lab): [address] [place] [address] ? ? P ? A/g 0.9 calc ? Final [facility] Hospital (Lab): [address] [place] [address] ? ? P ? Egfraa 103.61 ? Final [facility] (Lab): [address] [place] [address] ? ? P ? Egfrnaa 85.49 ? [facility] (Lab): [address] [place] [address] 05/28/2020 Vitamin B12, P Normal B12 943.00 pg/mL 193.00-9 86 Final [facility] Serum .00 pg/mL Hospita l (Lab): [address] [place] [address] 05/28/2020 Folate, P Normal Fol 27.2 NG/mL 8.6-58.9 Final [facility] Serum NG/mL Hospital (Lab): 90 [facility] 05/28/2020 Bilirubin, P High Dbil 1.86 mg/dL 0.00-0.20 Fi nal [facility] Direct, mg/dL Hospital Serum or (Lab): 9 0 Plasma [facility] 05/28/2020 Cell Count BF ? Bfsource abdominal ? Fin krista Tam W/ Diff, fluid Hospital Body Fluid (Lab): [address] [place] [address] ? ? BF ABNORMAL Bfcolor yellow colorless [facility] (Lab): [address] [place] [address] ? ? BF ABNORMAL Bfclarit slightly clear Final [facility] y cloudy Hospital (Lab): [address] [place] [address] ? ? BF ? Bfrbc 501.25 ? Final [facility] cells/uL Hospital (Lab): [address] [place] [address] ? ? BF ? Bfwbc 30 cells/uL ? Final [facility] (Lab): [address] [place] [address] ? ? BF ? Bfgran 15 % ? Final [facility] Hospital (Lab): [address] [place] [address] ? ? BF ? Bflymph 67 % ? Final [facility] Hospital (Lab): [address] [place] [address] ? ? BF ? Bfmono 16 % ? Final [facility] Hospital (Lab): [address] [place] [address] ? ? BF ? Bfeosin 0 % ? Final [facility] (Lab): [address] [place] [address] ? ? BF ? Bfother 2 % ? Final [facility] Hospital (Lab): [address] [place] [address] 05/28/2020 Culture + BF ? Fldsour paracentesis ? Fi nal [facility] Sensitivity, fluid Hosp ital Body Fluid (Lab): [address] [place] [address] ? ? BF ? Grm few pus ? Final [facility] moderate (Lab): [address], [address] [facility] ? ? BF ? Culresul no growth ? Final [facility] t after 48HR Hospit al (Lab): 90 [facility] 05/15/2020 Prothrombin P Normal ? 11.1 sec 9.4-11.3 [facility]icks [facility] (Lab): [address] [place] [address] ? ? P ? Inr 1.08 ? Final [facility] Hospital (Lab): [address] [place] [address] 05/15/2020 CBC W/ Auto WB High Wbc 19.0 4.8-10.8 Final [facility] Diff 10^3/mm^3 10^3/mm^3 Hosp ital (Lab): [address] [place] [address] ? ? WB Low Rbc 3.64 4.20-5.90 Final [facility] 10^6/mm^3 10^6/mm^3 Hosp ital (Lab): [address] [place] [address] ? ? WB Low Hgb 13.2 g/dL 13.5-17.5 Final [facility] age g/dL Hospital (Lab): [address] [place] [address] ? ? WB Low Hct 39 % 40-50 % Final [facility] Hospital (Lab): [address] [place] [address] ? ? WB High Mcv 106.6 fL 80.0-97.0 Final [facility] fL Hospital (Lab): [address] [place] [address] ? ? WB High Mch 36.3 pg 27.5-32.[address] [facility] e pg Hospital (Lab): [address] [place] [address] ? ? WB Normal Mchc 34 g/dL 33-36 g/dL Final [facility] (Lab): [address] [place] [address] ? ? WB Normal Rdw 12.7 % 11.6-14.8 Final [facility] % Hospital (Lab): [address] [place] [address] ? ? WB Normal Platelet 356 10^3/mm^3 150-400 Final [facility] s 10^3/mm^3 Hospita l (Lab): [address] [place] [address] 05/15/2020 RBC WB ? Macrocyt 1+ ? Final [facility] Morphology, osis Hospi anastasia Blood (Lab): [address] [place] [address] 05/15/2020 CBC, Reflex WB High %Neutrop 87 % 40-75 % Rachel l [facility] Manual Diff hil Hospi anastasia (Lab): [address] [place] [address] ? ? WB Normal %Band 0 % 0-5 % Final [facility] Hospital (Lab): [address] [place] [address] ? ? WB Low %Lymphoc 9 % 20-45 % [facility] (Lab[facility] [address] [place] [address] ? ? WB Normal %Monocyt 3 % 2-10 % Final [facility] (Lab): [address] [place] [address] ? ? WB Low %Eosinop 0 % 1-6 % Final [facility] hil Hospital (Lab): [address] [place] [address] ? ? WB Normal %Basophi 0 % 0-1 % Final [facility] Hospital (Lab): [address] [place] [address] ? ? WB ? %Atypica 0 % ? Final [facility] Lymph Hospital (Lab): [address] [place] [address] ? ? WB ? %Metamye 1 % ? Final [facility] locyte Hospital (Lab): [address] [place] [address] ? ? WB ? %Myelocy 0 % ? Final [facility] te Hospital (Lab): [address] [place] [address] ? ? WB ? %Promyel 0 % ? Final [facility] ocyte Hospital (Lab): [address] [place] [address] ? ? WB ? %Blast 0 % ? Final [facility] Hospital (Lab): [address] [place] [address] ? ? WB ? Nrbc 0 /100 WBC ? Final [facility] (Lab): [address] [place] [address] 05/15/2020 CMP, Serum P Normal Na 142 mEq/L 136-145 Final [facility] or Plasma mEq/L Hospita l (Lab): [address] [place] [address] ? ? P Normal K 4.5 mEq/L 3.5-5.1 Final [facility] mEq/L Hospital (Lab): [address] [place] [address] ? ? P Normal Cl 106 mEq/L 98-107 Final [facility] mEq/L Hospital (Lab): [address] [place] [address] ? ? P Normal Co2 28 mEq/L 21-31 Final [facility] mEq/L Hospital (Lab): [address] [place] [address] ? ? P ? Agap 13.0 ? Final [facility] calculation Hospi anastasia (Lab): [address] [place] [address] ? ? P Normal Glu 85 mg/dL 70-100 Final [facility] mg/dL Hospital (Lab): [address] [place] [address] ? ? P Normal Bun 12 mg/dL 7-18 mg/dL Final [facility] Hospital (Lab): [address] [place] [address] ? ? P Normal Creat 0.86 mg/dL 0.70-1.30 Final [facility] mg/dL Hospital (Lab): [address] [place] [address] ? ? P ? Bn/cr 13.8 ratio ? Final [facility] Hospital (Lab): [address] [place] [address] ? ? P Normal Ca 8.6 mg/dL 8.5-10.1 Final [facility] mg/dL Hospital (Lab): [address] [place] [address] ? ? P ? Alkp 419 U/L ? Final [facility] (Lab): [address] [place] [address] ? ? P High Alt 81 U/L 16-63 U/L Final [facility] (Lab): [address] [place] [address] ? ? P High Ast 119 U/L 15-37 U/L Final [facility] Hospital (Lab): [address] [place] [address] ? ? P High Tbil 5.4 mg/dL <=1.2 Final [facility] mg/dL Hospital (Lab): [address] [place] [address] ? ? P Low Tp 5.9 g/dL 6.4-8.2 Final [facility] g/dL Hospital (Lab): [address] [place] [address] ? ? P Low Alb 2.4 g/dL 3.4-5.0 Final [facility] g/dL Hospital (Lab): [address] [place] [address] ? ? P ? Glob 3.49 mg/dL ? Final [facility] (Lab): [address] [place] [address] ? ? P ? A/g 0.7 calc ? Final [facility] (Lab): [address] [place] [address] ? ? P ? Egfraa 117.63 ? Final [facility] (Lab): [address] [place] [address] ? ? P ? Egfrnaa 97.06 ? [facility] (Lab): [address] [place] [address] 05/15/2020 Bilirubin, P High Dbil 4.66 mg/dL 0.00-0.20 Fi [facility] Direct, mg/dL Hospital Serum or (Lab): 9 0 Plasma [facility] 05/04/2020 Bilirubin, P High Dbil 9.23 mg/dL 0.00-0.20 Fi nal [facility] Direct, mg/dL [facility] Serum or (Lab): 9 0 Plasma [facility] 05/04/2020 CMP, Serum P Normal Na 137 mEq/L 136-145 Final [facility] or Plasma mEq/L Hospita l (Lab): [address] [place] [address] ? ? P Normal K 4.6 mEq/L 3.5-5.1 Final [facility] mEq/L Hospital (Lab): [address] [place] [address] ? ? P Normal Cl 102 mEq/L 98-107 Final [facility] mEq/L Hospital (Lab): [address] [place] [address] ? ? P Normal Co2 26 mEq/L 21-31 Final [facility] mEq/L Hospital (Lab): [address] [place] [address] ? ? P ? Agap 13.8 ? Final [facility] calculation Hospi anastasia (Lab): [address] [place] [address] ? ? P Normal Glu 78 mg/dL 70-100 Final [facility] mg/dL Hospital (Lab): [address] [place] [address] ? ? P Normal Bun 14 mg/dL 7-18 mg/dL Final [facility] Hospital (Lab): [address] [place] [address] ? ? P Normal Creat 0.83 mg/dL 0.70-1.30 Final [facility] mg/dL Hospital (Lab): [address] [place] [address] ? ? P ? Bn/cr 16.3 ratio ? Final [facility] (Lab): [address] [place] [address] ? ? P Low Ca 8.2 mg/dL 8.5-10.1 [facility] ([facility] [address] [place] [address] ? ? P ? Alkp 431 U/L ? Final [facility] Hospital (Lab): [address] [place] [address] ? ? P High Alt 83 U/L 16-63 U/L Final [facility] Hospital (Lab): [address] [place] [address] ? ? P High Ast 151 U/L 15-37 U/L Final [facility] Hospital (Lab): [address] [place] [address] ? ? P High Tbil 11.2 mg/dL <=1.[address] [facility] e mg/dL Hospital (Lab): [address] [place] [address] ? ? P Low Tp 5.3 g/dL 6.4-8.2 Final [facility] g/dL Hospital (Lab): [address] [place] [address] ? ? P Low Alb 2.0 g/dL 3.4-5.0 Final [facility] g/dL Hospital (Lab): [address] [place] [address] ? ? P ? Glob 3.32 mg/dL ? Final [facility] (Lab): [address] [place] [address] ? ? P ? A/g 0.6 calc ? Final [facility] Hospital (Lab): [address] [place] [address] ? ? P ? Egfraa 122.55 ? Final [facility] Hospital (Lab): [address] [place] [address] ? ? P ? Egfrnaa 101.12 ? Final [facility] Hospital (Lab): [address] [place] [address] 04/30/2020 CMP, Serum P Normal Na 137 mEq/L 136-145 Final [facility] or Plasma mEq/L Hospita l (Lab): [address] [place] [address] ? ? P Normal K 4.2 mEq/L 3.5-5.[address] [facility] e mEq/L Hospital (Lab): [address] [place] [address] ? ? P Normal Cl 99 mEq/L 98-107 Final [facility] mEq/L Hospital (Lab): [address] [place] [address] ? ? P Normal Co2 25 mEq/L 21-31 Final [facility] mEq/L Hospital (Lab): [address] [place] [address] ? ? P ? Agap 16.5 ? Final [facility] calculation Hospi anastasia (Lab): [address] [place] [address] ? ? P Normal Glu 93 mg/dL 70-100 Final [facility] mg/dL Hospital (Lab): [address] [place] [address] ? ? P Normal Bun 11 mg/dL 7-18 mg/dL Final [facility] Hospital (Lab): [address] [place] [address] ? ? P Normal Creat 0.70 mg/dL 0.70-1.30 Final [facility] mg/dL Hospital (Lab): [address] [place] [address] ? ? P ? Bn/cr 15.3 ratio ? Final [facility] (Lab): [address] [place] [address] ? ? P Normal Ca 8.6 mg/dL 8.5-10.1 Final [facility] mg/dL Hospital (Lab): [address] [place] [address] ? ? P ? Alkp 444 U/L ? Final [facility] Hospital (Lab): [address] [place] [address] ? ? P High Alt 95 U/L 16-63 U/L Final [facility] Hospital (Lab): [address] [place] [address] ? ? P High Ast 132 U/L 15-37 U/L Final [facility] Hospital (Lab): [address] [place] [address] ? ? P CRITICAL Tbil 20.1 mg/dL <=1.2 Final [facility] HIGH mg/dL Hospital (Lab): [address] [place] [address] ? ? P Low Tp 6.0 g/dL 6.4-8.2 Final [facility] g/dL Hospital (Lab): [address] [place] [address] ? ? P Low Alb 2.3 g/dL 3.4-5.0 Final [facility] g/dL Hospital (Lab): [address] [place] [address] ? ? P ? Glob 3.71 mg/dL ? Final [facility] Hospital (Lab): [address] [place] [address] ? ? P ? A/g 0.6 calc ? Final [facility] Hospital (Lab): [address] [place] [address] ? ? P ? Egfraa 149.18 ? Final [facility] Hospital (Lab): [address] [place] [address] ? ? P ? Egfrnaa 123.08 ? Final [facility] Hospital (Lab): [address] [place] [address] 04/30/2020 CMP, Serum P Normal Na 137 mEq/L 136-145 Final [facility] or Plasma mEq/L Hospita l (Lab): [address] [place] [address] ? ? P Normal K 4.2 mEq/L 3.5-5.1 Final [facility] mEq/L Hospital (Lab): [address] [place] [address] ? ? P Normal Cl 99 mEq/L 98-107 Final [facility] mEq/L Hospital (Lab): [address] [place] [address] ? ? P Normal Co2 25 mEq/L 21-31 Final [facility] mEq/L Hospital (Lab): [address] [place] [address] ? ? P ? Agap 16.5 ? Final [facility] calculation Hospi anastasia (Lab): [address] [place] [address] ? ? P Normal Glu 93 mg/dL 70-100 Final [facility] mg/dL Hospital (Lab): [address] [place] [address] ? ? P Normal Bun 11 mg/dL 7-18 mg/dL Final [facility] Hospital (Lab): [address] [place] [address] ? ? P Normal Creat 0.70 mg/dL 0.70-1.30 Final [facility] mg/dL Hospital (Lab): [address] [place] [address] ? ? P ? Bn/cr 15.3 ratio ? Final [facility] Hospital (Lab): [address] [place] [address] ? ? P Normal Ca 8.6 mg/dL 8.5-10.1 Final [facility] mg/dL Hospital (Lab): [address] [place] [address] ? ? P ? Alkp 444 U/L ? Final [facility] Hospital (Lab): [address] [place] [address] ? ? P High Alt 95 U/L 16-63 U/L Final [facility] Hospital (Lab): [address] [place] [address] ? ? P High Ast 132 U/L 15-37 U/L Final [facility] Hospital (Lab): [address] [place] [address] ? ? P CRITICAL Tbil 20.1 mg/dL <=1.2 Final [facility] HIGH mg/dL Hospital (Lab): [address] [place] [address] ? ? P Low Tp 6.0 g/dL 6.4-8.2 Final [facility] g/dL Hospital (Lab): [address] [place] [address] ? ? P Low Alb 2.3 g/dL 3.4-5.0 Final [facility] g/dL Hospital (Lab): [address] [place] [address] ? ? P ? Glob 3.71 mg/dL ? Final [facility] (Lab): [address] [place] [address] ? ? P ? A/g 0.6 calc ? Final [facility] (Lab): [address] [place] [address] ? ? P ? Egfraa 149.18 ? Final [facility] (Lab): [address] [place] [address] ? ? P ? Egfrnaa 123.08 ? Final [facility] (Lab): [address] [place] [address] 04/30/2020 CBC, Reflex WB High %Neutrop 84 % 40-75 % Rachel l [facility] Manual Diff hil [facility] (Lab): [address] [place] [address] ? ? WB Normal %Band 1 % 0-5 % Final [facility] (Lab): [address] [place] [address] ? ? WB Low %Lymphoc 4 % 20-45 % Final [facility] (Lab): [address] [place] [address] ? ? WB Normal %Monocyt 6 % 2-10 % Final [facility] (Lab): [address] [place] [address] ? ? WB Normal %Eosinop 5 % 1-6 % Final [facility] (Lab): [address] [place] [address] ? ? WB ABNORMAL Platelet increased adequate Final [facility] (Lab): [address] [place] [address] ? ? WB ? Macrocyt 2+ ? Final [facility] (Lab): [address] [place] [address] 04/30/2020 Bilirubin, P High Dbil 16.13 mg/dL 0.00-0.20 F inal [facility] Direct, mg/dL Hospital Serum or (Lab): 9 0 Plasma [facility] 04/30/2020 Folate, P Normal Fol 38.7 NG/mL 8.6-58.9 Final [facility] Serum NG/mL Hospital (Lab): [address] [place] [address] 04/30/2020 Vitamin B12, P High B12 3378.00 pg/mL 193.00- 986 Final [facility] Serum .00 pg/mL Hospita l (Lab): [address] [place] [address] 04/30/2020 CBC W/ Auto WB High Wbc 16.7 4.8-10.8 Final [facility] Diff 10^3/mm^3 10^3/mm^3 Hosp ital (Lab): [address] [place] [address] ? ? WB Low Rbc 3.30 4.20-5.90 Final [facility] 10^6/mm^3 10^6/mm^3 Hosp ital (Lab): 90 [facility] ? ? WB Low Hgb 11.8 g/dL 13.5-17.5 Final [facility] age g/dL Hospital (Lab): [address] [place] [address] ? ? WB Low Hct 36 % 40-50 % Final [facility] (Lab): [address] [place] [address] ? ? WB High Mcv 108.2 fL 80.0-97.0 Final [facility] (Lab): [address] [place] [address] ? ? WB High Mch 35.8 pg 27.5-32.[address] [facility] e pg Hospital (Lab): [address] [place] [address] ? ? WB Normal Mchc 33 g/dL 33-36 g/dL Final [facility] (Lab): [address] [place] [address] ? ? WB Normal Rdw 14.0 % 11.6-14.8 [facility] ([facility] [address] [place] [address] ? ? WB High Platelet 481 10^3/mm^3 150-400 Final [facility] s 10^3/mm^3 Hospita l (Lab): [address] [place] [address] 04/30/2020 Prothrombin P High Pt 12.2 sec 9.4-11.3 Rachel l [facility] Time sec Hospital (Lab): [address] [place] [address] ? ? P ? Inr 1.18 ? Final [facility] (Lab): [address] [place] [address] Past Encounters 10/03/2020 Headache; Glioblastoma; Essential Hypert ension Ethan Araya, TUBE BENDING MACHINE OPERATOR: [address] [place] [address], Ph. 09/19/2020 Headache; Glioblastoma; Acute Laryngitis ; Essential Hypertension Ethan Araya, TUBE BENDING MACHINE OPERATOR: [address] [place] [address], Ph. 09/05/2020 Headache; Glioblastoma Ethan Araya, TUBE BENDING MACHINE OPERATOR: [address] [place] [address], Ph. 08/29/2020 Headache; Removal of Kirill Ethan Araya, TUBE BENDING MACHINE OPERATOR: [address] [place] [phone], Ph. 08/27/2020 Headache; Glioblastoma; Alcoholic Hepati tis; Essential Hypertension Ethan Araya, TUBE BENDING MACHINE OPERATOR: [address] [place] [phone], Ph. 08/13/2020 Neuropathy; Gastritis; Confusional State tEhan Araya, TUBE BENDING MACHINE OPERATOR: [address] [place] [phone], Ph. 08/07/2020 Alcoholic Hepatitis Kaitlin Luke MD: [address] [place] [phone], Ph. 07/09/2020 Neuropathy; Anxiety; On Examination - Ra sh Present; Posttraumatic Stress Disorder; Unintentional Weight Loss; Migraine Ethan Araya, TUBE BENDING MACHINE OPERATOR: [address] [place] [phone], Ph. 07/03/2020 Unintentional Weight Loss; Alcoholic Hep atitis Kaitlin Luke MD: [address] [place] [phone], Ph. 06/25/2020 Cirrhosis of Liver; Alcoholism; Anxiety; Neuropathy; Unintentional Weight Loss; Wheezing Ethan Araya, TUBE BENDING MACHINE OPERATOR: [address] [place] [phone], Ph. [phone] 06/05/2020 Alcoholic Hepatitis Kaitlin Luke MD: [address] [place] [phone], Ph. Social History Tobacco Smoking Status Light Tobacco Smoker (1 pack Notes: 1/4-1/2 ppd smoker per week) for 30+ yrs Vaccine List None recorded. Plan of Care Patient Instructions --Take morphine only once per day, probably in the morning --Take 1.5 tablets of dilaudid 4 times d aily NEEDED. --You will run out early on the dilaudid and you will have morphine for a longer period of time. --Take flonase twice daily, spray o ne spray down the throat as well. --Take 1/4tsp of salt in 1 cup of warm w ater, swish for 30 seconds or longer. --Take ibuprofen 400mg 2-3 times per day in addition. --Take the dilaudid as needed, trying to reduce it when you can --Go on nortriptyline 1 capsule at bedti me for the next couple weeks and see if that helps anxiety/or headaches. --Back down on the dilaudid to try to use the medication 3 times per day. --Stop gabapentin, stop seroquel, s top fiorecet --Start oxycontin every 12 hours as need ed. --Start nortriptyline, taking 1-2 capsul es for sleep and headache. It may take several weeks to start to notice a benefit. --Either call Dr. Luke, and Ill try t o reach out to her about the lasix/spironolactone and thiamine. --Stop gabapentin, stop seroquel, s top fiorecet --Start oxycontin every 12 hours as need ed. --Start nortriptyline, taking 1-2 capsul es for sleep and headache. It may take several weeks to start to notice a benefit. --Either call Dr. Luke, and Ill try t o reach out to her about the lasix/spironolactone and thiamine. --Please get the labs this week --I ordered you for a CT scan of the hea d, this needs to be done today or tomorrow. --I would try excedrin, I would try cold packs on the neck,dimmed lights. You can try Migrelief which is OTC. --Get labs done on Thursday --Try alpha lipoic acid 600mg, 2-3 times per day Reminders Provider Appointments None recorded. ? ? Lab None recorded. ? ? Referral None recorded. ? ? Procedures None recorded. ? ? Surgeries None recorded. ? ? Imaging None recorded. ? ? Vitals 10/03/2020 02:10PM COMPLEX FOLLOW UP Height Weight BMI Blood Pressure 182.88 cm 75.75 kg 22.6 kg/m2 144/80 mm[Hg] 09/19/2020 03:10PM FOLLOW UP Height Weight BMI Blood Pressure 182.88 cm 73.94 kg 22.1 kg/m2 156/90 mm[Hg] 09/05/2020 02:30PM FOLLOW UP Height Weight BMI Blood Pressure 182.88 cm 70.76 kg 21.2 kg/m2 126/80 mm[Hg] 08/29/2020 10:10AM COMPLEX FOLLOW UP Height Blood Pressure 182.88 cm 134/88 mm[Hg] 08/27/2020 03:30PM ACUTE - ESTABLISHED Height Weight BMI Blood Pressure 182.88 cm 69.85 kg 20.9 kg/m2 150/90 mm[Hg] 08/13/2020 09:30AM COMPLEX FOLLOW UP Height Weight BMI Blood Pressure 182.88 cm 71.67 kg 21.4 kg/m2 134/90 mm[Hg] 08/07/2020 11:30AM GASTROENTEROLOGY FOLLOW UP Height Blood Pressure 182.88 cm 130/90 mm[Hg] 07/09/2020 02:10PM COMPLEX FOLLOW UP Height Weight BMI Blood Pressure 182.88 cm 70.31 kg 21 kg/m2 120/80 mm[Hg] 07/03/2020 10:30AM GASTROENTEROLOGY FOLLOW UP Height Weight BMI Blood Pressure 182.88 cm 69.04 kg 20.6 kg/m2 120/78 mm[Hg] 06/25/2020 10:50AM NEW PATIENT Height Weight BMI Blood Pressure 182.88 cm 75.75 kg 22.6 kg/m2 120/84 mm[Hg] 06/05/2020 11:30AM GASTROENTEROLOGY FOLLOW UP Height Weight BMI Blood Pressure 182.88 cm 80.29 kg 24 kg/m2 142/98 mm[Hg]
--- OUTSIDE RECORDS SUMMARY | 2020-10-05 08:53 | XMS_ITS | Encounter Summary ---
:1975 Author Care Team Providers Name Role Phone Ethan Landa Primary Care Provider [phone] Ethan Landa (Direct) Primary Care Provider [phone] Ethan Landa Referring Provider [phone] Reason for Visit 1 mo f/u, CT results Assessment and Plan 1. Alcoholic hepatitis He will get follow up liver en zymes today. If normal will obtain elastography. Of note MRI did not have features of cirrhosis. Discussed that it seemed unlike that his mental status changes is due to hepatic encephalopathy with the normal ammonia level, however if his tests are still elevated or if he does have underlying cirrhosis could do a trial of rifaximin. I also recommended following up with neurology. Recommend discussing depression with PCP and referral to mental health services. 27 minutes spent in face to face encount er. 3 minutes spent in review of records. 3 minutes spent in documentation. Total encounter time was 33 minutes. Discussion Note: None recorded.Patient educational handouts: No information available. Plan of Care Reminders Provider Appointments Complex Ethan moon, Follow up 10/24/2020 SILK SPOOLER 3:50PM Lab None ? ? recorded. Referral None [...] recorded. Vitals Height Blood Pressure 6 ft 130/90 mm[Hg] Results Lab Results None recorded. Allergies [...] , states no hardware 08/07/2020 US, [facility] - R adiology [address] [place] [address] (Work Place) Vaccine List None recorded. Social History Tobacco Smoking Status Light Tobacco Smoker (1 Notes: 04/16 -04/14 ppd pack per week) smoker for 30+ yrs Do you have difficulty walking N or climbing stairs? Are you able to walk? YESWOREST Have you received the covid N Notes: naranjo s not received vaccine this year? (If so, a covid vacci nation, no document vaccination in Vaccine schedule d appt, on waiting Module in [place]) list Has tobacco cessation counseling 0 been [...] since 1 Have you travelled outside of [facility] in the past 14 days? Have you [...] Information) Functional Status No Impairment. Past Encounters 08/07/2020 Alcoholic Hepatitis Kaitlin Luke MD: [address] [place] [address], Ph. 07/09/2020 Neuropathy; Anxiety; On Examination - Ra sh Present; Posttraumatic Stress Disorder; Unintentional Weight Loss; Migraine Ethan Landa SILK SPOOLER: [address] [place] [address], Ph. History of Present Illness Note: His weight has stabilized. He reports having a lot confusion and difficulty with task like making breakfast sandwiches or locking the door. He is having three stools per day. He has been dropping things. He reports significant depression. He reports mood going up down from very high to very low. <div>
</div><div>He is on clindamycin of a dental infection. He has seen adentist and is schedule for extraction. </div>Review of Systems: ROS as noted in the HPI Review of Systems None recorded. Physical Exam ? Notes: General: appears stated age, NAD<div>Neuro: no asterixis </div><div>ENT: normal tympanic membranes </ div>
--- OUTSIDE RECORDS SUMMARY | 2020-10-05 08:53 | XMS_ITS | Encounter Summary ---
:1975 Author Care Team Providers Name Role Phone Ethan Landa Primary Care Provider [phone] Ethan Landa (Direct) Primary Care Provider [phone] Ethan Landa Referring Provider [phone] Reason for Visit f/u labs/weight loss Assessment and Plan 1. Neuropathy Compounded medication of benef it, not needing to use it twice per day. 2. Anxiety Increased anxiey with possible history of bipolar type 1 per his report, having been diagnosed with it previously and placed on medication, unsure what. Girlfriend present reports mood fluctuat ions but not consistent with remi. No hospitalizations, no grandiose patterns of thinking of multiple sleepless nights in a row. We could consider medication option s but will defer to behavioral health for oversight and reach back to the pt. 3. On examination - rash present New onset rash, violaceous and macular and possibly started when initiated on spironolactone which is possible give n side effect profile. Not itchy or painful. Will refer to derm. ? mine wedge sawyer referral - v iolaceous macular rash 4. Posttraumatic stress disorder 5. Unintentional weight loss CA 19-9 elevated but thankfull y MRI normal and he has actually gained some weight. Malignancy thus unlikely and ben ght loss could be from hepatitis and a combination of alcoholism. 6. Migraine New headache, likely migrainou s and controlled with tylenol. Rec. other conservative measures. Re-eval in 6 week s. Discussion Note: None recorded.Patient educational handouts: No information available. Plan of Care Patient Instructions --I would try excedrin, I would try cold packs on the neck,dimmed lights. You can try Migrelief which is OTC. Reminders Provider Appointments Complex Follow Ethan Landa, up 10/24/2020 WELFARE SERVICE AIDE 3:50PM Lab None recorded. ? ? Referral Funeral Prearrangement Counselor Ruth Ovalles Referral 07/09/2020 Procedures None recorded. ? ? Surgeries None recorded. ? ? Imaging None recorded. ? ? Medications Name Start Date ? ? apple [...] Height Weight BMI Blood Pressure 6 ft 155 lbs 21 kg/m2 120/80 mm[Hg] Results Lab Results None recorded. Allergies [...] no hardware 06/25/2020 XR, Chest, 2 View [facility] - R adiology [address] [place] [phone] (Work Place) 06/28/2020 CT, Abdomen + Pelvis, W/wo Contrast [facility] - Radiology [address] [place] [address] [phone] (Work Place) 07/03/2020 MRI, Abdomen, W/wo Contrast [facility] - Radiology [address] [place] [address] [phone] (Work Place) Vaccine List None recorded. Social [...] schedule d appt, on waiting Module in [place]) list Has tobacco cessation counseling 0 been [...] since 1 Have you travelled outside of [facility] in the past 14 days? Have [...] Information) Functional Status No Impairment. Past Encounters 07/09/2020 Neuropathy; Anxiety; On Examination - Ra sh Present; Posttraumatic Stress Disorder; Unintentional Weight Loss; Migraine Ethan Landa, WELFARE SERVICE AIDE: [address] [place] [phone], Ph. 07/03/2020 Unintentional Weight Loss; Alcoholic Hep atitis Kaitlin Luke MD: [address] [place] [phone], Ph. 06/25/2020 Cirrhosis of Liver; Alcoholism; Anxiety; Neuropathy; Unintentional Weight Loss; Wheezing Ethan Christie, WELFARE SERVICE AIDE: [address] [place] [address], Ph. [phone] History of Present Illness Note: Reason for Visit/Add'l information: f/u labs/weight loss: Skin discoloration on back of neck. Derm referral? Headaches.
<div>

Medication Reconciliation source: {{Patient * taper/finisher spouse }} .Conducted by [facility] relying on {{recall only* pill bottles patient's med list hospital discharge list rehab facility discharge list RESIDENTIAL med list others }}. Info seems {{reliable* not reliable}}.

Were there any discrepancies? {{ No Yes*}}. If yes, then list- Gabapentin taking once daily now.

Medications completed due to end of course if any - no

Have you been seen by another provider, had an ER visit or hospitalization since our last visit here on 06/25/20: Dr. Luke

And have any Medications been added, stopped or adjusted since last visit? no

Provider HPI</div><div>
</div><d iv>Headaches: New onset, family history. In the front primarily, sensitivity to the lights. Pain can radiatein the temples and maybe coming from his neck. Taking tylenol. Pain worsened by noise, also heart rate. Started a couple weeks ago. No new medications. Increased stress within the past couple weeks. Exe rtional and dependent positions can make it worse as well. Pain currently 07/21. Has not been everyday but occurring regularly </div><div>
</div><div>Hypertension: Higher at home, generally reads higher at home.</div><div>
</div><div>Anxiety: Ok, often situationally triggered and stress is currently elevated at home as he has his girlfriends daughter and her living at home in addition to two other children. </div><div>
</div><div>Neuropathic pain: Better controlled with topical cream, using once per day and also taking magnesium which helps. </div>Review of Systems: ROS as noted in the HPI Review of Systems None recorded. Physical Exam ? [facility] General Adult Exam Reported By: Patient Constitutional: General Appearance: healthy- appearing, well-nourished, well-developed. Level of Dis tress: NAD. Ambulation: ambulating normally Psychiatric: Insight: good judgement. [...] no murmurs, no rubs, no gallops Neurologic: Cranial Nerves: grossly inta ct Skin: Inspection and palpation: no rash, no lesions, no ulcer, no abnormal nevi
--- OUTSIDE RECORDS SUMMARY | 2020-10-05 08:53 | XMS_ITS | Encounter Summary ---
:1975 Author Care Team Providers Name Role Phone Ethan Landa Primary Care Provider [phone] Ethan Landa (Direct) Primary Care Provider [phone] Ethan Landa Referring Provider [phone] Reason for Visit f/u headaches Assessment and Plan Assessment Note Re-eval in 2 weeks. 1. Headache Improved headache, now on more frequent administration of dilaudid given that radiation increased his pain. Dexam ethasone has provided some symptomatic benefit. Will continue on dilaudid, up t o 5/day but again rec. that he try to wean down on the medication as much as alexa winter given the possibility of medication overuse headache. Furthermore, he stoppe d nortriptyline as he reports he is sleeping better but have him go back on the medic ation to address headaches and anxiety. Pt. amenable to plan. ? hydromorphone 2 mg tablet 2. Glioblastoma Followed by radiology/oncology 3. Acute laryngitis Possibly due to radiation--no signs of infection or lymphadenopathy but physical exam does show erythema in the pharynx. I am quite surprised he is symptomatically this bad while on dexame thasone. He may have a component of postnasal drip so will treat this etiology, rec. i buprofen and lidocaine. ? Lidocaine Viscous 2 % muco hola solution ? fluticasone propionate 50 mcg/actuation nasal spray,suspension 4. Essential hypertension Elevated BP, maintained on spi ronolactone. I will touch base with his hog scraper as given his normaliz ation of liver enzymes and lack of any findings of cirrhosis/ascites maybe I ca n switch his BP medication for one that may be more effective and help address heada ches like metoprolol. Discussion Note: None recorded.Patient educational handouts: No information available. Plan of Care Patient Instructions --Take flonase twice daily, spray o ne [...] and see if that helps anxiety/or headaches. Reminders Provider Appointments Complex 10/24/2020 Ethan moon, Follow up 3:50PM DEVELOPMENT AND HOUSING DIRECTOR Lab None ? ? recorded. Referral None [...] Height Weight BMI Blood Pressure 6 ft 163 lbs 22.1 kg/m2 156/90 mm[Hg] Results Lab Results None recorded. Allergies [...] right elbow fracture , states no hardware Vaccine List None recorded. Social History Tobacco [...] schedule d appt, on waiting Module in [place]) list Has tobacco cessation counseling 0 been [...] since 1 Have you travelled outside of [facility] in the past 14 days? Have [...] Information) Functional Status No Impairment. Past Encounters 09/19/2020 Headache; Glioblastoma; Acute Laryngitis ; Essential Hypertension Ethan Landa, DEVELOPMENT AND HOUSING DIRECTOR: [address] [place] [address], Ph. 09/05/2020 Headache; Glioblastoma Ethan Landa, DEVELOPMENT AND HOUSING DIRECTOR: [address] [place] [phone], Ph. 08/29/2020 Headache; Removal of Kirill Ethan Landa, DEVELOPMENT AND HOUSING DIRECTOR: [address] [place] [address], Ph. 08/27/2020 Headache; Glioblastoma; Alcoholic Hepati tis; Essential Hypertension Ethan Landa, DEVELOPMENT AND HOUSING DIRECTOR: [address] [place] [address], Ph. History of Present Illness Note: Reason for Visit/Add'l information: Sore throat and cannot talk.
<div>f/u headach es
</div><div>
Medication Reconciliation source: {{Patient * dispensing optician apprentice spouse }} .Conducted by [facility] relying on {{recall only* pill bottles patient's [...] hospitalization since our last visit here on 09/05/20:Neuro and Onc

And have any Medications been added, stopped or adjusted since lastvisit? no

Provider HPI</div& gt;<div>
</div><div>Headaches: Still having a headaches everyday, not as bad as formerly and gradually getting better. Pain currently about 4.5/10, still taking dilaudid about 4 times per day when the pain reaches a 7/10. No longer taking nortriptyline as he is sleeping ok now. Told by palliative care to take take dilaudid 1/2 hour before going into radiation and then thereafter as it increases his symptoms so he has been taking more of the medication recently. Not taking any tylenol or ibuprofen, worried about their effect on the liver. </div><div>
&l t;/div><div>Glioblastoma: Receiving both chemo and radiation. </div><div>
</div><div>Sore throat: Progressively getting worse since he started radiation on [id number] of September. Pain currently a 5/10. Sometimes hurts to eat, some dysphagia. Getting some allergies and postnasal drip, not taking any medication. Presently taking dexamethasone which has helped the headaches significantly. </div><div>
</div><div>Reports episodic anxiety , sometimes having spells of dizziness/nausea that tend to pass about an hour or 2. Was prescribed lorazepam by palliative care but has not taken it yet due to anxiety over the medication and its effects. </div>Review of Systems: ROS as noted in the HPI Review of Systems None recorded. Physical Exam ? General Adult Exam Reported By: Patient Constitutional: General Appearance: healthy- appearing, well-nourished, well-developed. Level of Dis tress: mild distress. Ambulation: ambulating normally Psychiatric: Insight: good judgement. Men anastasia Status: active and alert, normal mood, normal affect. Orienta tion: to time, to place, to person. Memory: recent memory normal , remote memory normal Head: Head: normocephalic, atrauma tic Eyes: Lids and Conjunctivae: non-i njected, no discharge, no pallor. Pupils: PERRLA. Corneas: grossly int act ENMT: Nose: no lesions on external nose, nares patent. Lips, Teeth, and Gums: no mouth or lip ulcers . Oropharynx: no exudates, tonsils not enlarged, erythema Neck: Neck: supple. Lymph Nodes: n o cervical LAD Lungs: Respiratory effort: no dyspn ea. Auscultation: [...]
[2020-10-05 09:47] LABS: Abs Immature Grans 0.94 10^3/uL (0.0-0.06); HCT 45.1 % (40.0-50.0); HGB 15.4 g/dL (13.5-17.5); MCH 31.9 pg (27.0-33.0); MCHC 34.1 % (32.0-36.0); MCV 93.4 fL (80-95); MPV 8.6 fL (8.0-11.0); Nucleated RBC 0 %; RBC 4.83 10^6/uL (4.36-5.78); RDW 12.9 % (11.8-14.1); RDW-SD 44.1 fL
[2020-10-05 10:08] LABS: Absolute Lymphocyte Count 0.97 10^3/uL (1.2-3.4); Absolute Monocyte Count 0.49 10^3/uL (0.1-0.8); Absolute Neutrophil Count 14.58 10^3/uL (1.2-6.7); Bands % 1; Diff Comment Manual Differential; Metamyelocytes % 1; RBC Morphology Normal
[2020-10-05 10:08] LABS: Iron 302 ug/dL (65-175)
[2020-10-05 10:09] LABS: Platelet Count 233 10^3/uL (130-400)
[2020-10-05 10:26] LABS: ALT 103 U/L (16-63); AST 36 U/L (15-37); Alkaline Phosphatase 114 U/L (46-116); Anion Gap 10.5 mmol/L (3-11); BUN 16 mg/dL (7-18); Bilirubin, Total 0.8 mg/dL (0.2-1.0); CO2 24.5 mmol/L (21.0-32.0); CREATININE 0.9 mg/dL (0.70-1.30); Calcium 9.5 mg/dL (8.5-10.1); Chloride 92 mmol/L (98-107); Glucose 96 mg/dL (74-106); Potassium 4.8 mmol/L (3.5-5.1); Sodium 127 mmol/L (136-145); Total Protein 8.4 g/dL (6.4-8.2); Vitamin B12 504 pg/mL (193-986)
[2020-10-05 10:27] LABS: Folate > 20.0 ng/mL (8.6-20.0)
== END 2020-10-05 08:35 | disposition home or self-care (01) ==
PROVIDERS: Visit Provider Internal Medicine
DX: C71.9 Malignant neoplasm of brain, unspecified (principal)
CPT/HCPCS: 36415; 80053; 82607; 82746; 83540; 85025

== ENCOUNTER 2020-10-24 03:47 | Outpatient (CLI) | payer MEDICAID, SELFPAY ==
[2020-10-24 12:04] LABS: HCT 40.4 % (40.0-50.0); HGB 13.6 g/dL (13.5-17.5); MCH 32.9 pg (27.0-33.0); MCHC 33.7 % (32.0-36.0); MCV 97.8 fL (80-95); MPV 8.3 fL (8.0-11.0); Nucleated RBC 0 %; Platelet Count 226 10^3/uL (130-400); RBC 4.13 10^6/uL (4.36-5.78); RDW 15.2 % (11.8-14.1); RDW-SD 53.8 fL; WBC 14.25 10^3/uL (4.4-10.8)
[2020-10-24 12:19] LABS: ALT 44 U/L (16-63); AST 39 U/L (15-37); Albumin 3.7 g/dL (3.4-5.0); Alkaline Phosphatase 118 U/L (46-116); Anion Gap 7.7 mmol/L (3-11); BUN 10 mg/dL (7-18); Bilirubin, Total 0.6 mg/dL (0.2-1.0); CO2 29.3 mmol/L (21.0-32.0); CREATININE 0.9 mg/dL (0.70-1.30); Calcium 8.8 mg/dL (8.5-10.1); Chloride 102 mmol/L (98-107); Glucose 69 mg/dL (74-106); Potassium 4.1 mmol/L (3.5-5.1); Sodium 139 mmol/L (136-145); Total Protein 7.6 g/dL (6.4-8.2)
[2020-10-24 12:21] LABS: Absolute Eosinophil Count 0.29 10^3/uL (0.0-0.7); Absolute Lymphocyte Count 2.14 10^3/uL (1.2-3.4); Absolute Monocyte Count 1.28 10^3/uL (0.1-0.8); Absolute Neutrophil Count 10.26 10^3/uL (1.2-6.7); Atypical Lymphocytes % 1; Bands % 2; Diff Comment Manual Differential; Metamyelocytes % 2; RBC Morphology Normal
== END 2020-10-24 03:48 | disposition home or self-care (01) ==
LOC: LBO 03:47
PROVIDERS: Visit Provider Internal Medicine
DX: C71.9 Malignant neoplasm of brain, unspecified (principal)
CPT/HCPCS: 36415; 80053; 85025

== ENCOUNTER 2020-12-20 12:56 | Outpatient (CLI) | payer MEDICAID, SELFPAY ==
[2020-12-20 13:17] LABS: HCT 37.9 % (40.0-50.0); HGB 13.6 g/dL (13.5-17.5); MCH 34.3 pg (27.0-33.0); MCHC 35.9 % (32.0-36.0); MCV 95.7 fL (80-95); MPV 8.3 fL (8.0-11.0); Nucleated RBC 0 %; Platelet Count 255 10^3/uL (130-400); RBC 3.96 10^6/uL (4.36-5.78); RDW 13.8 % (11.8-14.1); RDW-SD 48.8 fL; WBC 14.87 10^3/uL (4.4-10.8)
[2020-12-20 13:29] LABS: ALT 110 U/L (16-63); AST 88 U/L (15-37); Albumin 3.8 g/dL (3.4-5.0); Alkaline Phosphatase 269 U/L (46-116); Anion Gap 10.5 mmol/L (3-11); BUN 9 mg/dL (7-18); Bilirubin, Total 0.8 mg/dL (0.2-1.0); CO2 23.5 mmol/L (21.0-32.0); CREATININE 1.1 mg/dL (0.70-1.30); Calcium 8.9 mg/dL (8.5-10.1); Chloride 89 mmol/L (98-107); Glucose 115 mg/dL (74-106); Potassium 4.6 mmol/L (3.5-5.1); Total Protein 7.9 g/dL (6.4-8.2)
[2020-12-20 13:39] LABS: Sodium 123 mmol/L (136-145)
[2020-12-20 13:40] LABS: Absolute Lymphocyte Count 4.16 10^3/uL (1.2-3.4); Absolute Monocyte Count 1.19 10^3/uL (0.1-0.8); Absolute Neutrophil Count 9.22 10^3/uL (1.2-6.7); Atypical Lymphocytes % 2; Bands % 4; Diff Comment Manual Differential; RBC Morphology Normal
== END 2020-12-20 12:57 | disposition home or self-care (01) ==
PROVIDERS: Visit Provider Internal Medicine Hematology & Oncology
DX: C71.9 Malignant neoplasm of brain, unspecified (principal)
CPT/HCPCS: 36415; 80053; 85025

== ENCOUNTER 2021-01-16 02:39 | Outpatient (CLI) | payer MEDICAID, SELFPAY ==
[2021-01-16 13:03] LABS: HCT 37.3 % (40.0-50.0); HGB 12.9 g/dL (13.5-17.5); MCH 34.1 pg (27.0-33.0); MCHC 34.6 % (32.0-36.0); MCV 98.7 fL (80-95); MPV 8.2 fL (8.0-11.0); Nucleated RBC 0 %; Platelet Count 357 10^3/uL (130-400); RBC 3.78 10^6/uL (4.36-5.78); RDW 13.6 % (11.8-14.1); RDW-SD 49.1 fL; WBC 20.63 10^3/uL (4.4-10.8)
[2021-01-16 13:04] LABS: Bilirubin Negative (Negative); Blood Negative (Negative); Clarity Clear (Clear); Glucose Negative (Negative); Ketones Negative (Negative); Leukocyte Esterase Negative (Negative); Nitrite Negative (Negative); Specific Gravity 1.015 (1.005-1.025)
[2021-01-16 13:15] LABS: Bacteria Few HPF (Negative); Crystals Negative HPF (Negative); Epithelial Cells Rare HPF (Negative); Mucus Moderate (Negative); Other Cells Few Transitional (Negative); RBC 0-2 HPF (0-2)
[2021-01-16 13:16] LABS: C & S Indicated? No
[2021-01-16 13:20] LABS: Absolute Lymphocyte Count 1.44 10^3/uL (1.2-3.4); Absolute Monocyte Count 1.03 10^3/uL (0.1-0.8); Absolute Neutrophil Count 17.54 10^3/uL (1.2-6.7); Bands % 7
[2021-01-16 13:21] LABS: Diff Comment Manual Differential; Metamyelocytes % 1; Myelocytes % 2; RBC Morphology Normal
[2021-01-16 13:32] LABS: ALT 53 U/L (16-63); AST 41 U/L (15-37); Albumin 3.8 g/dL (3.4-5.0); Alkaline Phosphatase 283 U/L (46-116); Anion Gap 9.4 mmol/L (3-11); BUN 14 mg/dL (7-18); Bilirubin, Total 0.7 mg/dL (0.2-1.0); CO2 26.6 mmol/L (21.0-32.0); CREATININE 1.1 mg/dL (0.70-1.30); Calcium 9.9 mg/dL (8.5-10.1); Chloride 95 mmol/L (98-107); Glucose 152 mg/dL (74-106); Potassium 5.5 mmol/L (3.5-5.1); Sodium 131 mmol/L (136-145); Total Protein 8.2 g/dL (6.4-8.2)
== END 2021-01-16 02:40 | disposition home or self-care (01) ==
LOC: LBO 02:39
PROVIDERS: Visit Provider Internal Medicine
DX: C71.9 Malignant neoplasm of brain, unspecified (principal)
CPT/HCPCS: 36415; 80053; 81003; 81015; 85025